=== PATIENT | male | born 1935 | race Caucasian/White ===

== ENCOUNTER → 2017-06-25 | Outpatient (REF) | payer MEDICARE, OTHER | LOC: M LAB REF 17:02 | PROVIDERS: ATTEND Internal Medicine Nephrology | DX: N18.3 Chronic kidney disease, stage 3 (moderate) (principal); R80.9 Proteinuria, unspecified ==

== ENCOUNTER → 2017-08-06 | Outpatient (REF) | payer MEDICARE, OTHER ==
[2017-08-07 14:50] LABS: RBC, URINE 30-40 /hpf (0-3); SQUAMOUS EPITHELIAL CELL URINE NONE SEEN /hpf (SMALL AMT); WBC, URINE 0-1 /hpf (0-3)
[2017-08-07 14:51] LABS: BACTERIA, URINE SMALL AMOUNT; HYALINE CAST, URINE NONE SEEN /lpf (0-1); MICROSCOPIC EXAM PERFORMED
== END ==
LOC: M LAB REF 13:06
PROVIDERS: ATTEND Internal Medicine Nephrology
DX: N18.3 Chronic kidney disease, stage 3 (moderate) (principal); R31.29 Other microscopic hematuria

== ENCOUNTER → 2021-07-26 | Outpatient (REF) | payer MEDICARE, OTHER | LOC: M LAB REF 12:58 | PROVIDERS: ATTEND Internal Medicine Nephrology | DX: E83.42 Hypomagnesemia (principal) ==

== ENCOUNTER → 2023-12-12 | Outpatient (REF) | payer MEDICARE, OTHER ==
[2023-12-12 18:48] LABS: IRON (FE) 89 UG/DL (65-175); PERCENT SATURATION 29.7 % (19.7-50.0); TOTAL IRON BINDING CAPACITY 300 UG/DL (250-425)
[2023-12-12 18:50] LABS: FERRITIN 104.8 NG/ML (10.5-307.3)
[2023-12-12 18:52] LABS: FOLATE 8.3 NG/ML (>5.4); VITAMIN B12 LEVEL > 2000 PG/ML (211-911)
== END ==
LOC: M LAB REF 17:30
PROVIDERS: ATTEND Internal Medicine Nephrology
DX: R63.1 Polydipsia (principal)